=== PATIENT | female | born 1985 | race African-American/Black ===

== ENCOUNTER 2023-04-27 11:15 | Emergency (ER) | payer MEDICAID, OTHER ==
[~2023-04-27] VITALS: Ht 172.7 cm; Wt 124.0 kg
[2023-04-27] MEDS ORDERED: LORA10TA7 MT (12:52)
[2023-04-27] MEDS ORDERED: KETO-98 EACHEYE (12:52)
[2023-04-27 13:31] VITALS: BP 136/91
== END 2023-04-27 16:03 | disposition home or self-care (01) ==
LOC: ER 14:13
DX: H10.13 Acute atopic conjunctivitis, bilateral (principal); Z98.890 Other specified postprocedural states
CPT/HCPCS: 99282